=== PATIENT | male | born 1945 | race Caucasian/White ===

== ENCOUNTER 2019-11-28 21:40 | Emergency (ER) | payer MEDICARE, OTHER, SELFPAY ==
[2019-11-28] VITALS (8 sets, daily range): BP systolic 152–225; BP diastolic 81–96; PULSE 61–77; RESP 20; TEMP 36.4; O2SAT 96–99
--- NOTE | 2019-11-28 21:45 | RT.EKG_ITS ---
APPROVED REPORT Exam: Resting ECG Patient Location: E HR:68 bpm ECG Measurements Heart Rate 68 AXIS DE 149 P 60 QRSd 97 QRS 24 QT 408 T 46 QTc 434 Conclusion EKG 22: 07 Rate 68, sinus rhythm, intervals normal, no significant ST elevations or depressions. Slightly atypi peewee T wave morphology in V3, it does not look well wellenoid or like Brugada. Suspect normal variant . No other abnormalities otherwise. No evidence of STEMI.
--- NOTE | 2019-11-28 22:11 | ED.GENADUL_ITS ---
Discharge Plan Disposition Patient Disposition: HOME Condition: Good Discharge Details Clinical Impression: Mild HTN, Anxiety Primary Care Provider: None,None ED Provider: Skip Vagras Home Meds and New Rx's Prescriptions: Continued loratadine 10 MG tablet,disintegrating 10 mg PO QAM RF: 0 atorvastatin [Lipitor] 10 MG tablet 10 mg PO HS RF: 0 clarithromycin [Biaxin] 500 MG tablet 500 mg PO BID PRNRF: 0 metoprolol succinate [Toprol XL] 100 MG tablet extended release 24 hr 150 mg PO BID RF: 0 aspirin,buffd-calcium carb-mag 325 MG tablet 325 mg PO QAM RF: 0 lorazepam 0.5 MG tablet 0.5 mg PO PRN PRNRF: 0 lisinopril 30 MG tablet 30 mg PO QAM RF: 0 hydroxychloroquine 200 MG tablet 200 mg PO BID PRNRF: 0 dutasteride [Avodart] 0.5 MG capsule 1 cap PO QAM RF: 0 Pantaprazol 40 mg PO QAM RF: 0 metformin 500 mg tablet extended release 24 hr 1,000 mg PO BID RF: 0 Discharge Instructions Instructions: Hypertension (ED) Additional Instructions: At this time your blood pressure is normalized. I suspect there is a combination of chronic hypertension, Lyme disease component, and perhaps a small amount of anxiety as well. Your EKG and urinalysis is very reassuring. At this time now that your blood pressure is normalized to a tolerable level feel that you can be discharged. Please take your Ativan as needed for anxiety. Drink plenty of fluids and avoid foods high in salt content. If you notice any worsening of your symptoms, or any new symptoms such as vomiting, diarrhea, fever, chills, shortness of breath, chest pain, numbness, weakness, or fainting , please return immediately to the emergency department for reevaluation. Please follow up with your primary care provider as soon as possible for reassessment and reevaluation. As always, it was a pleasure participating in your medical care today. Medical Decision Making 74-year-old male with a past medical history of a cardiac stent, cardiac ablation for SVT, hypertension, on 40 mg of lisinopril daily and 150 mg of metoprolol twice daily, as well as chronic Lyme disease presents today for evaluation of hypertension. He is currently visiting from [place]. Patient states that throughout his life he has chronically had episodes of intermittent transient hypertension is usually associated with mild ringing in his ears. Over the last day he has been noticing that his pressures have been in the 180s to 190s but then today it was over 200. He came to the ER for further evaluation. He has been taking his medications as directed. He states that this is identical to his episodes that he has had in the past. He also states that usually he just stays in the emergency department for 30 minutes to an hour the symptoms resolve on its own. He denies any red flags of tearing or ripping sensation in his chest, chest heaviness, chest tightness, arm neck or shoulder pain, severe headache, throbbing sensation in his head, numbness tingling or weakness. He denies any other complaints at this time. Also of note he recently had a notable work-up back in [place] just 2 to 3 weeks ago with a negative head CT, negative RAAS screening, negative urine metanephrines, negative troponin. No other complaints at this time. No other modifying factors. Physical exam is notably unremarkable, screening EKG is benign. We will get a urinalysis to evaluate for microangiopathic hemolytic anemia she is notably low on the differential. Already in the emergency department with rest and lying down his blood pressures decreased to 180 systolic. We will continue to monitor here in the ED with expectant discharge of his blood pressure continues to remain stable. 10:49 PM Patient has been observed here for over an hour, blood pressure is consistently in the 150 systolic, in the 80s diastolic. Patient feels well and requesting discharge. EKG and urinalysis are negative for any significant abnormalities. Signs and symptoms inconsistent with acute life-threatening etiology. This time patient will be discharged home. He does feel that his anxiety is a notable component. We will give 2 doses of Ativan 1 mg for home use as needed. I have extensively reviewed the treatment plan and discharge instructions with the patient. I have addressed all patient concerns at this time. The patient was mad e aware of what symptoms to monitor for that would warrant a return to the emergency department. Discussed the plan with the patient, they demonstrate verbal understanding and agreement with our assessment and plan at this time. EKG 22: 07 Rate 68, sinus rhythm, intervals normal, no significant ST elevations or depressions. Slightly atypical T wave morphology in V3, it does not look well wellenoid or like Brugada. Suspect normal variant. No other abnormalities otherwise. No evidence of STEMI. HPI General Date/Time Provider Initiated Documentation: 11/28/19 21:42 . HPI Narrative: 74-year-old male with a past medical history of a cardiac stent, cardiac ablation for SVT, hypertension, on 40 mg of lisinopril daily and 150 mg of metoprolol twice daily, as well as chronic Lyme disease presents today for evaluation of hypertension. He is currently visiting from [place]. Patient states that throughout his life he has chronically had episodes of intermittent transient hypertension is usually associated with mild ringing in his ears. Over the last day he has been noticing that his pressures have been in the 180s to 190s but then today it was over 200. He came to the ER for further evaluation. He has been taking his medications as directed. He states that this is identical to his episodes that he has had in the past. He also states that usually he just stays in the emergency department for 30 minutes to an hour the symptoms resolve on its own. He denies any red flags of tearing or ripping sensation in his chest, chest heaviness, chest tightness, arm neck or shoulder pain, severe headache, throbbing sensation in his head, numbness tingling or weakness. He denies any other complaints at this time. Also of note he recently had a notable work-up back in [place] just 2 to 3 weeks ago with a negative head CT, negative RAAS screening, negative urine metanephrines, negative troponin. No other complaints at this time. No other modifying factors. Related Data Home Medications Medication Instructions Recorded Confirmed Pantaprazol 40 mg PO QAM 11/30/12 11/28/19 aspirin,buffd-calcium carb-mag 325 mg PO QAM 11/30/12 11/28/19 atorvastatin [Lipitor] 10 mg PO HS 11/30/12 11/28/19 clarithromycin [Biaxin] 500 mg PO BID PRN 11/30/12 11/28/19 dutasteride [Avodart] 1 cap PO QAM 11/30/12 11/28/19 hydroxychloroquine 200 mg PO BID PRN 11/30/12 11/28/19 lisinopril 30 mg PO QAM 11/30/12 11/28/19 loratadine 10 mg PO QAM 11/30/12 11/28/19 lorazepam 0.5 mg PO PRN PRN 11/30/12 11/28/19 metoprolol succinate [Toprol XL] 150 mg PO BID 11/30/12 11/28/19 metformin 1,000 mg PO BID 11/28/19 11/28/19 Allergies Allergy/AdvReac Type Severity Reaction Status Date / Time No Known Allergies Allergy Unverified 11/28/19 21:58 General Stated Complaint: Vascular VICKI: 3 Review of Systems All systems reviewed & are unremarkable except as noted in HPI and below PFSH Social History Smoking/Tobacco Use Status: Never Alcohol Intake: never Drug use: Never Do you feel safe at home: Yes Exam Narrative Exam Narrative: 1.Const: Well-nourished, Well-developed, appearing stated age 2.Eyes: PERRL, no conjunctival injection, and symmetrical lids. 3.ENT: Atraumatic external nose and ears. Moist MM. Neck: Symmetric, trachea midline, No thyromegaly. 4.CVS: +S1/S2, No murmurs or gallops. Peripheral pulses 2+ and equal in all extremities. Brisk capillary refill in all extremities. 5.RESP: Unlabored respiratory effort. Clear to auscultation bilaterally. No whe ezes rales or rhonchi 6.GI: Soft, Nontender/Nondistended, No hepatosplenomegaly. No guarding or rebound. 7.MSK: Normocephalic/Atraumatic, Extremities w/o deformity or ttp No cyanosis or clubbing, Normal movement of all extremities 8.Skin: Warm, Dry. No rashes or lesions. 9.Neuro: third steel pourer II-XII grossly intact. Sensation grossly intact, no focal neurologic deficits. 10.Psych: (AAO) x3. Appropriate mood and affect Course Vital Signs Vital signs: Vital Signs Temperature 36.4 C L 11/28/19 21:48 Pulse 77 11/28/19 21:48 Respiratory Rate 20 11/28/19 21:48 Blood Pressure 225/96 H 11/28/19 21:48 Pulse Oximetry 97 11/28/19 21:48 Temperature 36.4 C L 11/28/19 21:48 Temperature Source Tympanic 11/28/19 21:48 Pulse 77 11/28/19 21:48 Respiratory Rate 20 11/28/19 21:55 Respiratory Effort 11/28/19 21:55 Respiratory Depth Normal 11/28/19 21:55 Respiratory Pattern Normal 11/28/19 21:55 Blood Pressure 225/96 H 11/28/19 21:48 Pulse Oximetry 97 11/28/19 21:48 Oxygen Delivery Method Room Air 11/28/19 21:48 Oxygen Flow Rate 0 11/28/19 21:48 Pain Level 0 11/28/19 21:48
[2019-11-28 22:17] LABS: Bilirubin Negative (Negative); Blood Negative (Negative); Clarity Clear (Clear); Glucose Negative (Negative); Ketones Negative (Negative); Leukocyte Esterase Negative (Negative); Nitrite Negative (Negative); Specific Gravity 1.015 (1.005-1.025); Urobilinogen 0.2 EU/dL (Up TO 0.2)
[2019-11-28] MEDS: LORazepam 1 MG TAB 2 MG PO (22:56)
== END 2019-11-28 22:55 | disposition home or self-care (01) ==
PROVIDERS: Emergency Provider Student in an Organized Health Care Education/Training Program
DX: I10 Essential (primary) hypertension (principal); F41.9 Anxiety disorder, unspecified; A69.20 Lyme disease, unspecified; I25.10 Atherosclerotic heart disease of native coronary artery without angina pectoris; Z95.5 Presence of coronary angioplasty implant and graft
CPT/HCPCS: 93005; 99283; 81003; 93010